=== PATIENT | male | born 1955 | race Caucasian/White ===

== ENCOUNTER → 2024-05-29 | Outpatient (CLI) | payer MEDICARE, BC ==
[2024-06-04 13:42] LABS: Stool Occult Bld Immuno 1 Positive (NEGATIVE)
== END | disposition home or self-care (01) ==
LOC: LAB SHORT 11:26 → LAB 11:26
PROVIDERS: Family Medicine
DX: D50.8 Other iron deficiency anemias (principal)
CPT/HCPCS: G0328

== ENCOUNTER 2024-07-28 06:58 | Day surgery (SDC) | payer MEDICARE, BC ==
[~2024-07-28] VITALS: Ht 177.8 cm; Wt 101.0 kg
[2024-07-28] MEDS ORDERED: AMLO5 (07:21)
[2024-07-28] MEDS ORDERED: Vitamin D1000 UNI1 (07:22)
[2024-07-28] MEDS ORDERED: MULTIPLE VITAM1 EACH (07:22)
[2024-07-28] MEDS ORDERED: ZYRTEC10 M2 (07:22)
[2024-07-28] MEDS ORDERED: propofoL 50 ML IV ONE ×2 (07:23→09:11)
[2024-07-28] MEDS ORDERED: IRON18 M1 (07:23)
[2024-07-28] MEDS ORDERED: SILD50TA (07:23)
[2024-07-28] MEDS ORDERED: Lactated Ringer's 1,000 ML IV ONE ×2 (07:23→08:02)
[2024-07-28] MEDS ORDERED: PANTOPRAZOLE SO40 M1 (07:23)
--- NOTE | 2024-07-28 09:57 | NUR ---
07/28/24 0957 Alina Dutton 0942: PER PATIENT ABD PAIN OF GAS FEELING HAS IMPROVED OR LESSENED AND SO HAS THE THROAT PAIN
== END 2024-07-28 09:56 | disposition home or self-care (01) ==
LOC: ORSCSDS 06:58
PROVIDERS: Internal Medicine Gastroenterology
PROC: 0DJD8ZZ Inspection of Lower Intestinal Tract, Via Natural or Artificial Opening Endoscopic (ICD-10-PCS; principal; 2024-07-28 08:30)
PROC: 0DB78ZX Excision of Stomach, Pylorus, Via Natural or Artificial Opening Endoscopic, Diagnostic (ICD-10-PCS; principal; 2024-07-28 08:30)
PROC: 0DB58ZX Excision of Esophagus, Via Natural or Artificial Opening Endoscopic, Diagnostic (ICD-10-PCS; principal; 2024-07-28 08:30)
DX: K21.9 Gastro-esophageal reflux disease without esophagitis (principal); K31.7 Polyp of stomach and duodenum; R13.14 Dysphagia, pharyngoesophageal phase; R19.5 Other fecal abnormalities; D50.9 Iron deficiency anemia, unspecified; Z79.899 Other long term (current) drug therapy
CPT/HCPCS: 88305; J2704; J7120

== ENCOUNTER → 2024-09-03 | Outpatient (CLI) | payer MEDICARE, BC ==
[~2024-09-03] MED LIST: AMLO5; IRON18 M1; MULTIPLE VITAM1 EACH; PANTOPRAZOLE SO40 M1; SILD50TA; Vitamin D1000 UNI1; ZYRTEC10 M2
[2024-09-04 11:49] LABS: Stool Occult Bld Immuno 1 Negative (NEGATIVE)
== END ==
LOC: LAB SHORT 14:15 → LAB 14:15 → EDSTATUS 09-02 13:35 → LAB FUT 09-02 13:35
PROVIDERS: Internal Medicine Gastroenterology
DX: D50.9 Iron deficiency anemia, unspecified (principal)
CPT/HCPCS: 82274